=== PATIENT | female | born 1990 | race Caucasian/White ===

== ENCOUNTER 2018-09-14 12:03 | Inpatient (IN) | payer OTHER ==
[2018-09-14 12:35] LABS: ADD UMIC YES; UR ASCORBIC ACID NEGATIVE (NEGATIVE); UR BACTERIA FEW /HPF (NONE SEEN); UR BILIRUBIN (Dip) NEGATIVE (NEGATIVE); UR BLOOD (Dip) 1+ mg/dL (NEGATIVE); UR CLARITY CLEAR (CLEAR); UR COLOR STRAW (YELLOW); UR GLUCOSE (Dip) NEGATIVE (NEGATIVE); UR KETONES (Dip) NEGATIVE (NEGATIVE); UR LEUKOCYTE ESTERASE (Dip) NEGATIVE Leu/ul (NEGATIVE); UR NITRITE (Dip) NEGATIVE (NEGATIVE); UR RBC 1 /HPF (0-5); UR TOTAL PROTEIN (Dip) NEGATIVE (NEGATIVE); UR UROBILINOGEN (Dip) NEGATIVE (NEGATIVE); UR WBC 0 /HPF (0-5)
[2018-09-14] MEDS ORDERED: TERBUTALINE 1 ML (13:24)
[2018-09-14] MEDS: TERBUTALINE 1 MG/ML INJ SC (13:28)
[2018-09-14] MEDS: LACTATED RINGER'S 1,000 ML IV ×3 (14:51→23:00)
[2018-09-14] MEDS: MAGNESIUM SULFATE 4 GM/100 ML 100 ML IV (18:28)
[2018-09-14] MEDS: MAGNESIUM SULFATE 20 GM/500 ML 500 ML IV (18:44)
[2018-09-14] MEDS: BETAMET NA PHOS/AC(6 MG/ML) 2 ML INJ SYG IM (19:04)
[2018-09-15] MEDS ORDERED: CA GLUCONATE (GM) 10% 10ML INJ IV
[2018-09-15 01:04] LABS: MAGNESIUM 4.8 mg/dl (1.7-2.5)
[2018-09-15] MEDS: MAGNESIUM SULFATE 20 GM/500 ML 500 ML IV (04:13)
[2018-09-15] MEDS: LACTATED RINGER'S 1,000 ML IV ×3 (05:30→19:01)
[2018-09-15 09:00] LABS: MAGNESIUM 5.4 mg/dl (1.7-2.5)
[2018-09-15] MEDS ORDERED: SPECIAL NON-STANDARD MEDICATION PO (09:00)
[2018-09-15] MEDS: PRENATAL VITAMIN PO (09:00)
[2018-09-15] MEDS: FERROUS SULFATE (EC) 325 MG TAB PO (09:05)
[2018-09-15 12:37] LABS: MAGNESIUM 5.8 mg/dl (1.7-2.5)
[2018-09-15] MEDS: ACETAMINOPHEN 325 MG TAB PO (13:04)
[2018-09-15] MEDS: AL HYDROX/MG HYDROX/SIMETH 30 ML CUP PO (13:05)
[2018-09-15] MEDS: SPECIAL NON-STANDARD MEDICATION PO (14:13)
[2018-09-15] MEDS: NIFEdipine 10 MG CAP PO ×2 (15:46)
[2018-09-15] MEDS: BETAMET NA PHOS/AC(6 MG/ML) 2 ML INJ SYG IM (19:02)
[2018-09-15] MEDS: NIFEdipine (XL) 30 MG TAB PO (21:26)
[2018-09-16] MEDS: LACTATED RINGER'S 1,000 ML IV ×3 (03:16→23:00)
[2018-09-16] MEDS: NIFEdipine (XL) 30 MG TAB PO (05:34)
[2018-09-16] MEDS ORDERED: SPECIAL NON-STANDARD MEDICATION PO (09:00)
[2018-09-16] MEDS: FERROUS SULFATE (EC) 325 MG TAB PO (09:53)
[2018-09-17] MEDS: LACTATED RINGER'S 1,000 ML IV (06:24)
[2018-09-17] MEDS: SPECIAL NON-STANDARD MEDICATION PO (08:49)
[2018-09-17] MEDS: FERROUS SULFATE (EC) 325 MG TAB PO (08:49)
== END 2018-09-17 15:39 | disposition home or self-care (01) | DRG 833 ==
LOC: OBT 12:03 → L-D 12:03 → OBT 16:40 → PP1 16:40
DX: O60.03 Preterm labor without delivery, third trimester (principal)
CPT/HCPCS: 36415; 76815; 76817; 76818; 81001; 82731; 83735; 87086; 96360; 96361